=== PATIENT | female | born 1940 | race Caucasian/White ===

== ENCOUNTER 2022-06-21 16:50 | Emergency (ER) | payer OTHER, MEDICAID ==
--- NOTE | 2022-06-21 17:30 | NUR ---
Called to triage pt but pt no where to be found. Looked in wating room, bathrooms, and front lobby.
== END 2022-06-21 17:46 | disposition left against medical advice (07) ==
LOC: SED 16:50
DX: M25.572 Pain in left ankle and joints of left foot (principal); Z53.21 Procedure and treatment not carried out due to patient leaving prior to being seen by health care provider